=== PATIENT | female | born 1960 | race Caucasian/White ===

== ENCOUNTER 2017-04-27 09:02 | Emergency (ER) | payer OTHER ==
[~2017-04-27] VITALS: Ht 160 cm; Wt 63.6 kg
[~2017-04-27 09:02] MED LIST: AUGMENTIN875 MG PO; CLOBETASOL PROP60 GM TP; DILAUDID; DILAUDID2 MG PO; DIOVAN; DIOVAN HCT 81 TABLET PO; DIOVAN80 MG PO; DOLOPHINE HCL10 MG PO; FLEXERIL10 MG PO; FLUTICASONE PRO16 GM BOTH NARES; LIDOCAINE20 MG/1 M5 PO; MAGIC MOUTHWASH1 ML MM; METHADONE10 MG PO; MOTRIN600 MG PO; NAPROSYN500 MG PO; NAPROXEN500 MG PO; PERCOCET 7.51 TABLET PO; PRILOSEC20 MG PO; PRILOSEC40 MG PO; QUETIAPINE FUM100 MG PO; SYNTHROID175 MCG PO; ULTRAM50 MG PO; VALIUM10 MG PO; VICODIN; VICODIN ES 71 TABLET PO; VICODIN,LORT1 TABLET PO
[2017-04-27] MEDS ORDERED: MOTRIN800 MG PO (14:23)
[2017-04-27 14:34] VITALS: BP 120/88
== END 2017-04-27 14:37 | disposition home or self-care (01) ==
LOC: EME 09:02
DX: S00.83XA Contusion of other part of head, initial encounter (principal); S00.33XA Contusion of nose, initial encounter; S90.01XA Contusion of right ankle, initial encounter; S20.211A Contusion of right front wall of thorax, initial encounter; M54.5 Low back pain; Y04.2XXA Assault by strike against or bumped into by another person, initial encounter; I10 Essential (primary) hypertension; F17.200 Nicotine dependence, unspecified, uncomplicated
CPT/HCPCS: 70450; 71020; 72110; 72125; 73610; 99281; 99284

== ENCOUNTER 2017-12-30 16:10 | Inpatient (IN) | payer OTHER ==
[~2017-12-30] VITALS: Ht 162.6 cm; Wt 80.9 kg
[~2017-12-30 16:10] MED LIST changes: +DIOVAN160 MG PO; +MOTRIN800 MG PO
[2017-12-30 16:45] LABS: BASOPHIL (%) 0.4 % (0-1); BASOPHIL COUNT 0.2 K/uL (0-0.1); EOSINOPHIL (%) 1.2 % (0-5); EOSINOPHIL COUNT 0.5 K/uL (0-0.3); IMMATURE GRANULOCYTE (%) 2.4 % (0.0-0.7); LYMPHOCYTE (%) 6.2 % (15-42); LYMPHOCYTE COUNT 2.3 K/uL (1.0-2.8); MONOCYTE COUNT 1.5 K/uL (0-0.8); NEUTROPHIL (%) 85.8 % (45-76); NEUTROPHIL COUNT 31.7 K/uL (1.8-6.4); PLATELET COUNT 352 K/uL (156-360)
[2017-12-30 16:47] LABS: CARBON DIOXIDE (BICARBONATE) 15.2 MEQ/L (20-31)
[2017-12-30 16:49] LABS: BASE EXCESS -12.6 mEq/L (-3 to +3); BICARBONATE 12.7 mEq/L (22-26); CARBOXY HGB 2.2 % (0-5); COMMENTS - BLOOD GASES A+C+; METHEMOGLOBIN 1.2 % (0-1.5); O2 FLOW 8 L/MIN; PCO2 27 mm Hg (35-45); PO2 55 mm Hg (80-100); SITE RR; pH 7.28 (7.35-7.45)
[2017-12-30 16:50] LABS: DEVICE CON NEB/NC; TOTAL RESP RATE 26 resp/min
[2017-12-30 16:54] LABS: ALBUMIN 3.4 g/dL (3.2-4.8); CHLORIDE 110 mEq/L (99-109); POTASSIUM 2.6 mEq/L (3.7-5.4); SODIUM 142 mEq/L (136-147)
[2017-12-30 16:57] LABS: GLUCOSE 126 mg/dL (70-99); TOTAL PROTEIN 7.1 g/dL (6.4-8.3)
[2017-12-30 16:59] LABS: TOTAL BILIRUBIN 0.5 mg/dL (0.0-1.0)
[2017-12-30 17:00] LABS: ALKALINE PHOSPHATASE 124 IU/L (3-129); CREATININE 1.9 mg/dL (0.6-1.3); GFR ESTIMATE (CALCULATED) 29 mL/min/
[2017-12-30 17:01] LABS: UREA NITROGEN (BUN) 28 mg/dL (9-23)
[2017-12-30 17:02] LABS: AST (GOT) 31 IU/L (2-34)
[2017-12-30 17:03] LABS: ALT (GPT) 21 IU/L (3-49)
[2017-12-30 17:04] LABS: HEMATOCRIT 35.7 % (36.0-46.0); HEMOGLOBIN 12.6 G/DL (11.9-15.5); MCH 30.4 PG (29.0-34.0); MCHC 35.3 G/DL (30.0-36.0); NRBC (%) 0.1 /100 WBC (0-0); RBC DIS.WIDTH-CV 14.8 % (11.8-14.6); RBC DIS.WIDTH-SD 46.7 % (39-53); RED BLOOD COUNT 4.15 M/uL (3.80-5.20)
[2017-12-30 17:08] LABS: TROP-I INTERPRETATION NEGATIVE; TROPONIN-I < 0.01 ng/mL (0.0-0.30)
[2017-12-30 18:29] LABS: LIPASE 10 U/L (1.0-51.0)
[2017-12-30 18:33] LABS: INTER. NORMALIZED RATIO 1.3
[2017-12-30 18:36] LABS: PTT 24.8 SEC (25-37)
[2017-12-30 19:17] LABS: TROP-I INTERPRETATION NEGATIVE; TROPONIN-I < 0.01 ng/mL (0.0-0.30)
[2017-12-30] MEDS ORDERED: FLONASE16 G1 BOTH NARES (22:06)
[2017-12-30] MEDS ORDERED: ACID REFLUX PO (22:07)
[2017-12-30] MEDS ORDERED: BLOOD PRESSURE PO (22:07)
[2017-12-30] MEDS ORDERED: DEPRESSION PO (22:08)
[2017-12-30 23:06] LABS: APPEARANCE SL.HAZY ((CLEAR)); BILIRUBIN NEGATIVE; BLOOD MODERATE; COLOR YELLOW ((YELLOW)); GLUCOSE (STRIP) NEGATIVE; KETONES NEGATIVE; LEUKOCYTES TRACE; NITRITE NEGATIVE; PROTEIN (STRIP) 100; SPECIFIC GRAVITY 1.012 (1.000-1.030)
[2017-12-30 23:14] LABS: BACTERIA RARE /HPF; EPITHELIAL CELLS RARE /HPF; MUCUS NONE SEEN /LPF; RED BLOOD CELLS 0-5 /HPF (0-5); UCUL ADDED? YES
[2017-12-30 23:44] VITALS: BP 180/101
[2017-12-31] VITALS (40 sets, daily range): BP systolic 78–1119; BP diastolic 42–78
[2017-12-31 00:39] LABS: INTER. NORMALIZED RATIO 1.3
[2017-12-31 00:42] LABS: BASE EXCESS -16.5 mEq/L (-3 to +3); BICARBONATE 11.6 mEq/L (22-26); CARBOXY HGB 1.5 % (0-5); METHEMOGLOBIN 1.6 % (0-1.5); PO2 62 mm Hg (80-100)
[2017-12-31 00:43] LABS: COMMENTS - BLOOD GASES C+A+; DEVICE VENT; FI02 100 %; MECHANICAL RATE 18 resp/min; MODE AC; PCO2 35 mm Hg (35-45); PEEP 10 CM/H20; SITE LR; TIDAL VOLUME 450 ML; TOTAL RESP RATE 35 resp/min; pH 7.13 (7.35-7.45)
[2017-12-31 08:28] LABS: ALBUMIN 2.5 G/DL (3.2-4.8); ALKALINE PHOSPHATASE 91 IU/L (3-129); ALT (GPT) 23 IU/L (3-49); AST (GOT) 49 IU/L (2-34); CHLORIDE 113 MEQ/L (99-109); CREATININE 1.9 MG/DL (0.6-1.3); GFR ESTIMATE (CALCULATED) 29 mL/min/; GLUCOSE 110 mg/dL (70-99); POTASSIUM 2.7 MEQ/L (3.7-5.4); SODIUM 141 MEQ/L (136-147); TOTAL BILIRUBIN 0.5 MG/DL (0.0-1.0); TOTAL PROTEIN 5.8 G/DL (6.4-8.3); UREA NITROGEN (BUN) 29 mg/dL (9-23); VANCOMYCIN, TROUGH 24.3 MCG/ML (10-20)
[2017-12-31 11:39] LABS: BASE EXCESS -9.5 mEq/L (-3 to +3); CARBOXY HGB 1.1 % (0-5); METHEMOGLOBIN 1.9 % (0-1.5); PCO2 39 mm Hg (35-45)
[2017-12-31 11:40] LABS: BICARBONATE 17.1 mEq/L (22-26); COMMENTS - BLOOD GASES A+C+; DEVICE PB 980; FI02 70 %; O2 FLOW 60 L/MIN; PO2 79 mm Hg (80-100); SITE RR; pH 7.25 (7.35-7.45)
[2017-12-31 11:41] LABS: INSPIRATION TIME 0.8 seconds; MECHANICAL RATE 25 resp/min; MODE AC VC+; PEEP 14 CM/H20; TIDAL VOLUME 450 ML; TOTAL RESP RATE 25 resp/min
[2017-12-31 12:35] LABS: MAGNESIUM 1.6 mg/dl (1.3-2.7); PHOSPHORUS 4.5 mg/dL (2.5-4.9); TRIGLYCERIDES 155 MG/DL (Normal: <150)
[2017-12-31 12:36] LABS: HIGH-SENS C-REACTIVE PROTEIN > 8.00 MG/DL (0.02-0.20)
[2017-12-31 22:37] LABS: BASE EXCESS -4.9 mEq/L (-3 to +3); BICARBONATE 20.6 mEq/L (22-26); CARBOXY HGB 1.2 % (0-5); COMMENTS - BLOOD GASES A+C+; METHEMOGLOBIN 1.4 % (0-1.5); PCO2 39 mm Hg (35-45); PO2 92 mm Hg (80-100); SITE RR; pH 7.33 (7.35-7.45)
[2017-12-31 22:38] LABS: DEVICE VENT; FI02 50 %; INSPIRATION TIME 0.8 seconds; MECHANICAL RATE 25 resp/min; MODE A/C; PEEP 16 CM/H20; TIDAL VOLUME 450 ML; TOTAL RESP RATE 25 resp/min
[2018-01-01] VITALS (25 sets, daily range): BP systolic 85–113; BP diastolic 55–80
[2018-01-01 05:26] LABS: BASOPHIL (%) 0.2 % (0-1); BASOPHIL COUNT 0.1 K/uL (0-0.1); EOSINOPHIL (%) 0 % (0-5); HEMATOCRIT 27.3 % (36.0-46.0); IMMATURE GRANULOCYTE (%) 1.6 % (0.0-0.7); LYMPHOCYTE (%) 1.7 % (15-42); LYMPHOCYTE COUNT 0.5 K/uL (1.0-2.8); MCH 29.4 PG (29.0-34.0); MCHC 34.1 G/DL (30.0-36.0); MCV 86.4 FL (83-99); MONOCYTE (%) 4.3 % (3-12); MONOCYTE COUNT 1.2 K/uL (0-0.8); NEUTROPHIL (%) 92.2 % (45-76); NEUTROPHIL COUNT 24.9 K/uL (1.8-6.4); NRBC (%) 0.2 /100 WBC (0-0); PLATELET COUNT 249 K/uL (156-360); RBC DIS.WIDTH-CV 15.4 % (11.8-14.6)
[2018-01-01 05:30] LABS: HEMOGLOBIN 9.3 G/DL (11.9-15.5); RED BLOOD COUNT 3.16 M/uL (3.80-5.20)
[2018-01-01 05:38] LABS: CHLORIDE 115 MEQ/L (99-109); GFR ESTIMATE (CALCULATED) 27 mL/min/; GLUCOSE 87 mg/dL (70-99); POTASSIUM 3.4 MEQ/L (3.7-5.4); SODIUM 146 MEQ/L (136-147); UREA NITROGEN (BUN) 33 mg/dL (9-23)
[2018-01-01 05:43] LABS: ALBUMIN 2.4 G/DL (3.2-4.8); ALKALINE PHOSPHATASE 96 IU/L (3-129); ALT (GPT) 40 IU/L (3-49); CREATINE KINASE 577 IU/L (1-294); PHOSPHORUS 4.7 mg/dL (2.5-4.9)
[2018-01-01 05:45] LABS: AST (GOT) 89 IU/L (2-34); HIGH-SENS C-REACTIVE PROTEIN 17.53 MG/DL (0.02-0.20); MAGNESIUM 1.9 mg/dl (1.3-2.7); TOTAL BILIRUBIN 0.7 MG/DL (0.0-1.0); TOTAL PROTEIN 4.8 G/DL (6.4-8.3)
[2018-01-01 08:41] LABS: BASE EXCESS -6.3 mEq/L (-3 to +3); DEVICE 980; FI02 40 %; MECHANICAL RATE 25 resp/min; METHEMOGLOBIN 1.3 % (0-1.5); MODE A/C; PCO2 36 mm Hg (35-45); PEEP 14 CM/H20; PO2 75 mm Hg (80-100); SITE LR; TIDAL VOLUME 450 ML; TOTAL RESP RATE 25 resp/min; pH 7.33 (7.35-7.45)
[2018-01-02] VITALS (17 sets, daily range): BP systolic 107–139; BP diastolic 67–91
[2018-01-02 05:25] LABS: BASOPHIL (%) 0.2 % (0-1); EOSINOPHIL (%) 1.1 % (0-5); EOSINOPHIL COUNT 0.2 K/uL (0-0.3); HEMATOCRIT 29.7 % (36.0-46.0); HEMOGLOBIN 9.8 G/DL (11.9-15.5); IMMATURE GRANULOCYTE (%) 3.7 % (0.0-0.7); LYMPHOCYTE (%) 4.3 % (15-42); LYMPHOCYTE COUNT 0.7 K/uL (1.0-2.8); MCH 29.3 PG (29.0-34.0); MCV 88.7 FL (83-99); MONOCYTE (%) 4.7 % (3-12); MONOCYTE COUNT 0.8 K/uL (0-0.8); NEUTROPHIL COUNT 14.7 K/uL (1.8-6.4); NRBC (%) 0.2 /100 WBC (0-0); PLATELET COUNT 238 K/uL (156-360); RBC DIS.WIDTH-SD 52.3 % (39-53); RED BLOOD COUNT 3.35 M/uL (3.80-5.20)
[2018-01-02 05:45] LABS: ALBUMIN 2.4 G/DL (3.2-4.8); ALKALINE PHOSPHATASE 119 IU/L (3-129); ALT (GPT) 68 IU/L (3-49); CHLORIDE 116 MEQ/L (99-109); CREATINE KINASE 611 IU/L (1-294); CREATININE 1.9 MG/DL (0.6-1.3); GFR ESTIMATE (CALCULATED) 29 mL/min/; GLUCOSE 97 mg/dL (70-99); PHOSPHORUS 3.8 mg/dL (2.5-4.9); POTASSIUM 3.3 MEQ/L (3.7-5.4); SODIUM 145 MEQ/L (136-147); TOTAL PROTEIN 4.9 G/DL (6.4-8.3); UREA NITROGEN (BUN) 40 mg/dL (9-23)
[2018-01-02 05:46] LABS: AST (GOT) 139 IU/L (2-34); MAGNESIUM 2.3 mg/dl (1.3-2.7); TOTAL BILIRUBIN 1.2 MG/DL (0.0-1.0)
[2018-01-02 08:20] LABS: BASE EXCESS -6.3 mEq/L (-3 to +3); BICARBONATE 19.7 mEq/L (22-26); CARBOXY HGB 1.6 % (0-5); METHEMOGLOBIN 1.2 % (0-1.5); PCO2 40 mm Hg (35-45); PO2 65 mm Hg (80-100)
[2018-01-02 08:21] LABS: COMMENTS - BLOOD GASES A+C+; DEVICE 980; FI02 40 %; MECHANICAL RATE 25 resp/min; MODE A/C; PEEP 10 CM/H20; SITE RR; TIDAL VOLUME 450 ML; TOTAL RESP RATE 25 resp/min
[2018-01-03] VITALS (16 sets, daily range): BP systolic 118–160; BP diastolic 71–108
[2018-01-03 05:50] LABS: BASOPHIL (%) 0.3 % (0-1); BASOPHIL COUNT 0.1 K/uL (0-0.1); EOSINOPHIL (%) 2.2 % (0-5); EOSINOPHIL COUNT 0.4 K/uL (0-0.3); HEMATOCRIT 29.5 % (36.0-46.0); HEMOGLOBIN 9.8 G/DL (11.9-15.5); IMMATURE GRANULOCYTE (%) 4.7 % (0.0-0.7); LYMPHOCYTE COUNT 0.9 K/uL (1.0-2.8); MCH 29.7 PG (29.0-34.0); MCHC 33.2 G/DL (30.0-36.0); MCV 89.4 FL (83-99); MONOCYTE (%) 5.2 % (3-12); NEUTROPHIL (%) 82.6 % (45-76); NRBC (%) 0.2 /100 WBC (0-0); PLATELET COUNT 253 K/uL (156-360); RBC DIS.WIDTH-CV 16.2 % (11.8-14.6); WHITE BLOOD COUNT 18.1 K/uL (4.1-10.2)
[2018-01-03 06:19] LABS: ALBUMIN 2.3 G/DL (3.2-4.8); ALKALINE PHOSPHATASE 114 IU/L (3-129); ALT (GPT) 57 IU/L (3-49); CHLORIDE 119 MEQ/L (99-109); CREATINE KINASE 145 IU/L (1-294); CREATININE 1.6 MG/DL (0.6-1.3); GFR ESTIMATE (CALCULATED) 35 mL/min/; GLUCOSE 98 mg/dL (70-99); MAGNESIUM 2.1 mg/dl (1.3-2.7); PHOSPHORUS 3.3 mg/dL (2.5-4.9); POTASSIUM 3.2 MEQ/L (3.7-5.4); SODIUM 151 MEQ/L (136-147); TOTAL BILIRUBIN 1.2 MG/DL (0.0-1.0); TOTAL PROTEIN 5.1 G/DL (6.4-8.3); UREA NITROGEN (BUN) 39 mg/dL (9-23)
[2018-01-03 06:20] LABS: AST (GOT) 71 IU/L (2-34)
[2018-01-03 16:02] LABS: TYPE OF FLUID PLEURAL
[2018-01-03 16:41] LABS: APPEARANCE HAZY-YELLOW; BODY FLUID RBC'S 4000 /MM^3 (0-100); BODY FLUID WBC'S 46340 /MM^3 (0-500)
[2018-01-03 17:07] LABS: BODY FLUID GLUCOSE > 10 MG/DL
[2018-01-03 17:08] LABS: BODY FLUID PROTEIN 4.4 G/DL
[2018-01-03 17:12] LABS: BODY FLUID EOSINOPHILS 0 % (0-25); MONONUCLEAR WBC'S 4 %; POLYNUCLEAR WBC'S 96 % (0-25)
[2018-01-03 17:14] LABS: BODY FLUID LDH 3900 IU/L
[2018-01-04] VITALS (18 sets, daily range): BP systolic 118–154; BP diastolic 75–104
[2018-01-04 05:13] LABS: BASOPHIL (%) 0.2 % (0-1); EOSINOPHIL (%) 3.2 % (0-5); EOSINOPHIL COUNT 0.5 K/uL (0-0.3); HEMATOCRIT 29.1 % (36.0-46.0); HEMOGLOBIN 9.3 G/DL (11.9-15.5); IMMATURE GRANULOCYTE (%) 4.8 % (0.0-0.7); LYMPHOCYTE (%) 6.2 % (15-42); MCH 29.2 PG (29.0-34.0); MCV 91.5 FL (83-99); MONOCYTE (%) 4.3 % (3-12); MONOCYTE COUNT 0.7 K/uL (0-0.8); NEUTROPHIL (%) 81.3 % (45-76); NEUTROPHIL COUNT 13.4 K/uL (1.8-6.4); NRBC (%) 0.1 /100 WBC (0-0); PLATELET COUNT 241 K/uL (156-360); RBC DIS.WIDTH-CV 16.3 % (11.8-14.6); RBC DIS.WIDTH-SD 55.3 % (39-53); RED BLOOD COUNT 3.18 M/uL (3.80-5.20); WHITE BLOOD COUNT 16.4 K/uL (4.1-10.2)
[2018-01-04 06:23] LABS: ALBUMIN 2.2 G/DL (3.2-4.8); ALKALINE PHOSPHATASE 99 IU/L (3-129); ALT (GPT) 43 IU/L (3-49); AST (GOT) 47 IU/L (2-34); CHLORIDE 121 MEQ/L (99-109); CREATININE 1.3 MG/DL (0.6-1.3); GFR ESTIMATE (CALCULATED) 45 mL/min/; GLUCOSE 119 mg/dL (70-99); PHOSPHORUS 3.4 mg/dL (2.5-4.9); SODIUM 152 MEQ/L (136-147); UREA NITROGEN (BUN) 38 mg/dL (9-23)
[2018-01-04 06:24] LABS: POTASSIUM 3.9 MEQ/L (3.7-5.4); TOTAL BILIRUBIN 0.9 MG/DL (0.0-1.0)
[2018-01-04 11:42] LABS: BASE EXCESS -3.2 mEq/L (-3 to +3); CARBOXY HGB 1.5 % (0-5); COMMENTS - BLOOD GASES A+C+; DEVICE 980; FI02 50 %; MECHANICAL RATE 25 resp/min; METHEMOGLOBIN 1.7 % (0-1.5); MODE A/C; PCO2 39 mm Hg (35-45); PEEP 10 CM/H20; PO2 86 mm Hg (80-100); SITE RR; TIDAL VOLUME 450 ML; TOTAL RESP RATE 25 resp/min; pH 7.36 (7.35-7.45)
[2018-01-05] VITALS (19 sets, daily range): BP systolic 120–155; BP diastolic 66–104
[2018-01-05 05:37] LABS: BASOPHIL (%) 0.4 % (0-1); BASOPHIL COUNT 0.1 K/uL (0-0.1); EOSINOPHIL (%) 4.9 % (0-5); EOSINOPHIL COUNT 0.8 K/uL (0-0.3); HEMATOCRIT 29.7 % (36.0-46.0); HEMOGLOBIN 9.6 G/DL (11.9-15.5); IMMATURE GRANULOCYTE (%) 3.9 % (0.0-0.7); LYMPHOCYTE (%) 6.3 % (15-42); LYMPHOCYTE COUNT 1.1 K/uL (1.0-2.8); MCH 29.6 PG (29.0-34.0); MCHC 32.3 G/DL (30.0-36.0); MCV 91.7 FL (83-99); MONOCYTE (%) 5.6 % (3-12); MONOCYTE COUNT 0.9 K/uL (0-0.8); NEUTROPHIL (%) 78.9 % (45-76); NEUTROPHIL COUNT 13.4 K/uL (1.8-6.4); PLATELET COUNT 288 K/uL (156-360); RBC DIS.WIDTH-CV 16.4 % (11.8-14.6); RBC DIS.WIDTH-SD 54.9 % (39-53); RED BLOOD COUNT 3.24 M/uL (3.80-5.20); WHITE BLOOD COUNT 16.9 K/uL (4.1-10.2)
[2018-01-05 06:25] LABS: ALBUMIN 2.4 G/DL (3.2-4.8); ALKALINE PHOSPHATASE 110 IU/L (3-129); ALT (GPT) 38 IU/L (3-49); AST (GOT) 41 IU/L (2-34); CHLORIDE 113 MEQ/L (99-109); CREATINE KINASE 55 IU/L (1-294); CREATININE 1.2 MG/DL (0.6-1.3); GFR ESTIMATE (CALCULATED) 49 mL/min/; GLUCOSE 106 mg/dL (70-99); MAGNESIUM 1.8 mg/dl (1.3-2.7); PHOSPHORUS 2.9 mg/dL (2.5-4.9); POTASSIUM 3.7 MEQ/L (3.7-5.4); SODIUM 147 MEQ/L (136-147); TOTAL PROTEIN 5.2 G/DL (6.4-8.3); UREA NITROGEN (BUN) 33 mg/dL (9-23)
[2018-01-05 06:28] LABS: TOTAL BILIRUBIN 0.7 MG/DL (0.0-1.0)
[2018-01-06] VITALS (23 sets, daily range): BP systolic 115–152; BP diastolic 68–95
[2018-01-06 05:27] LABS: BASOPHIL (%) 0.3 % (0-1); EOSINOPHIL (%) 4.6 % (0-5); EOSINOPHIL COUNT 0.6 K/uL (0-0.3); HEMATOCRIT 28.9 % (36.0-46.0); HEMOGLOBIN 9.3 G/DL (11.9-15.5); IMMATURE GRANULOCYTE (%) 2.3 % (0.0-0.7); LYMPHOCYTE (%) 8.2 % (15-42); LYMPHOCYTE COUNT 1.2 K/uL (1.0-2.8); MCH 29.6 PG (29.0-34.0); MCHC 32.2 G/DL (30.0-36.0); MONOCYTE (%) 6.5 % (3-12); MONOCYTE COUNT 0.9 K/uL (0-0.8); NEUTROPHIL (%) 78.1 % (45-76); NEUTROPHIL COUNT 10.9 K/uL (1.8-6.4); PLATELET COUNT 294 K/uL (156-360); RBC DIS.WIDTH-CV 15.9 % (11.8-14.6); RBC DIS.WIDTH-SD 53.1 % (39-53); RED BLOOD COUNT 3.14 M/uL (3.80-5.20)
[2018-01-06 05:57] LABS: ALBUMIN 2.3 G/DL (3.2-4.8); ALKALINE PHOSPHATASE 112 IU/L (3-129); ALT (GPT) 32 IU/L (3-49); AST (GOT) 40 IU/L (2-34); CHLORIDE 111 MEQ/L (99-109); CREATININE 1.1 MG/DL (0.6-1.3); GFR ESTIMATE (CALCULATED) 54 mL/min/; GLUCOSE 105 mg/dL (70-99); MAGNESIUM 1.9 mg/dl (1.3-2.7); PHOSPHORUS 3.4 mg/dL (2.5-4.9); POTASSIUM 3.8 MEQ/L (3.7-5.4); SODIUM 144 MEQ/L (136-147); TOTAL BILIRUBIN 0.7 MG/DL (0.0-1.0); TOTAL PROTEIN 5.2 G/DL (6.4-8.3); UREA NITROGEN (BUN) 29 mg/dL (9-23)
[2018-01-07] VITALS (24 sets, daily range): BP systolic 94–135; BP diastolic 53–87
[2018-01-07 05:32] LABS: BASOPHIL (%) 0.5 % (0-1); BASOPHIL COUNT 0.1 K/uL (0-0.1); EOSINOPHIL (%) 3.7 % (0-5); EOSINOPHIL COUNT 0.4 K/uL (0-0.3); HEMATOCRIT 29.2 % (36.0-46.0); HEMOGLOBIN 9.4 G/DL (11.9-15.5); IMMATURE GRANULOCYTE (%) 2.4 % (0.0-0.7); LYMPHOCYTE COUNT 1.1 K/uL (1.0-2.8); MCH 29.6 PG (29.0-34.0); MCHC 32.2 G/DL (30.0-36.0); MCV 91.8 FL (83-99); MONOCYTE (%) 7.6 % (3-12); MONOCYTE COUNT 0.9 K/uL (0-0.8); NEUTROPHIL (%) 76.8 % (45-76); NEUTROPHIL COUNT 9.3 K/uL (1.8-6.4); PLATELET COUNT 317 K/uL (156-360); RBC DIS.WIDTH-CV 15.3 % (11.8-14.6); RBC DIS.WIDTH-SD 51.6 % (39-53); RED BLOOD COUNT 3.18 M/uL (3.80-5.20); WHITE BLOOD COUNT 12.1 K/uL (4.1-10.2)
[2018-01-07 05:55] LABS: ALBUMIN 2.6 G/DL (3.2-4.8); ALKALINE PHOSPHATASE 111 IU/L (3-129); ALT (GPT) 24 IU/L (3-49); AST (GOT) 30 IU/L (2-34); CHLORIDE 107 MEQ/L (99-109); GFR ESTIMATE (CALCULATED) > 59 mL/min/; GLUCOSE 100 mg/dL (70-99); MAGNESIUM 1.9 mg/dl (1.3-2.7); PHOSPHORUS 3.8 mg/dL (2.5-4.9); POTASSIUM 3.7 MEQ/L (3.7-5.4); SODIUM 139 MEQ/L (136-147); TOTAL BILIRUBIN 0.6 MG/DL (0.0-1.0); TOTAL PROTEIN 5.6 G/DL (6.4-8.3); UREA NITROGEN (BUN) 24 mg/dL (9-23)
[2018-01-07 14:17] LABS: INTER. NORMALIZED RATIO 1.1
[2018-01-07 14:20] LABS: PTT 32.8 SEC (25-37)
[2018-01-07 17:06] LABS: C DIFF TOXIN NEGATIVE (NEGATIVE)
[2018-01-08] VITALS (15 sets, daily range): BP systolic 97–127; BP diastolic 57–80
[2018-01-08 05:30] LABS: HEMATOCRIT 27.7 % (36.0-46.0); MCH 29.5 PG (29.0-34.0); MCHC 32.5 G/DL (30.0-36.0); MCV 90.8 FL (83-99); RBC DIS.WIDTH-CV 15.3 % (11.8-14.6); RBC DIS.WIDTH-SD 50.4 % (39-53); RED BLOOD COUNT 3.05 M/uL (3.80-5.20); WHITE BLOOD COUNT 12.7 K/uL (4.1-10.2)
[2018-01-08 05:38] LABS: CHLORIDE 104 MEQ/L (99-109); CREATININE 1.1 MG/DL (0.6-1.3); GFR ESTIMATE (CALCULATED) 54 mL/min/; GLUCOSE 88 mg/dL (70-99); POTASSIUM 3.8 MEQ/L (3.7-5.4); SODIUM 138 MEQ/L (136-147); UREA NITROGEN (BUN) 23 mg/dL (9-23)
[2018-01-08 05:49] LABS: PLATELET COUNT 427 K/uL (156-360)
[2018-01-09] VITALS (23 sets, daily range): BP systolic 75–126; BP diastolic 58–89
[2018-01-09 05:33] LABS: HEMATOCRIT 30.5 % (36.0-46.0); HEMOGLOBIN 9.6 G/DL (11.9-15.5); MCHC 31.5 G/DL (30.0-36.0); MCV 92.1 FL (83-99); PLATELET COUNT 461 K/uL (156-360); RBC DIS.WIDTH-CV 15.1 % (11.8-14.6); RBC DIS.WIDTH-SD 51.1 % (39-53); RED BLOOD COUNT 3.31 M/uL (3.80-5.20); WHITE BLOOD COUNT 13.3 K/uL (4.1-10.2)
[2018-01-09 05:58] LABS: CHLORIDE 104 MEQ/L (99-109); CREATININE 1.3 MG/DL (0.6-1.3); GFR ESTIMATE (CALCULATED) 45 mL/min/; GLUCOSE 79 mg/dL (70-99); POTASSIUM 3.8 MEQ/L (3.7-5.4); SODIUM 138 MEQ/L (136-147); UREA NITROGEN (BUN) 19 mg/dL (9-23)
[2018-01-10] VITALS (22 sets, daily range): BP systolic 83–105; BP diastolic 55–93
[2018-01-10 05:11] LABS: HEMATOCRIT 28.6 % (36.0-46.0); HEMOGLOBIN 9.3 G/DL (11.9-15.5); MCH 29.2 PG (29.0-34.0); MCHC 32.5 G/DL (30.0-36.0); MCV 89.7 FL (83-99); PLATELET COUNT 536 K/uL (156-360); RBC DIS.WIDTH-CV 14.8 % (11.8-14.6); RBC DIS.WIDTH-SD 48.4 % (39-53); RED BLOOD COUNT 3.19 M/uL (3.80-5.20); WHITE BLOOD COUNT 11.6 K/uL (4.1-10.2)
[2018-01-10 05:34] LABS: CHLORIDE 104 MEQ/L (99-109); CREATININE 1.1 MG/DL (0.6-1.3); GFR ESTIMATE (CALCULATED) 54 mL/min/; GLUCOSE 87 mg/dL (70-99); POTASSIUM 3.6 MEQ/L (3.7-5.4); SODIUM 138 MEQ/L (136-147); UREA NITROGEN (BUN) 17 mg/dL (9-23)
[2018-01-10 14:14] LABS: HIGH-SENS C-REACTIVE PROTEIN > 8.00 MG/DL (0.02-0.20)
[2018-01-11] VITALS (22 sets, daily range): BP systolic 89–164; BP diastolic 52–100
[2018-01-11 05:35] LABS: HEMATOCRIT 25.9 % (36.0-46.0); HEMOGLOBIN 8.3 G/DL (11.9-15.5); MCH 29.2 PG (29.0-34.0); MCV 91.2 FL (83-99); PLATELET COUNT 577 K/uL (156-360); RBC DIS.WIDTH-CV 14.8 % (11.8-14.6); RBC DIS.WIDTH-SD 49.6 % (39-53); RED BLOOD COUNT 2.84 M/uL (3.80-5.20); WHITE BLOOD COUNT 10.1 K/uL (4.1-10.2)
[2018-01-11 05:55] LABS: CHLORIDE 106 MEQ/L (99-109); CREATININE 1.2 MG/DL (0.6-1.3); GFR ESTIMATE (CALCULATED) 49 mL/min/; GLUCOSE 82 mg/dL (70-99); PHOSPHORUS 4.6 mg/dL (2.5-4.9); POTASSIUM 3.5 MEQ/L (3.7-5.4); SODIUM 138 MEQ/L (136-147); UREA NITROGEN (BUN) 17 mg/dL (9-23)
[2018-01-11 05:56] LABS: HIGH-SENS C-REACTIVE PROTEIN > 8.00 MG/DL (0.02-0.20); MAGNESIUM 2.2 mg/dl (1.3-2.7)
[2018-01-11 21:27] LABS: HEMATOCRIT 25.8 % (36.0-46.0); HEMOGLOBIN 8.2 G/DL (11.9-15.5); MCHC 31.8 G/DL (30.0-36.0); MCV 91.2 FL (83-99); PLATELET COUNT 628 K/uL (156-360); RBC DIS.WIDTH-CV 14.7 % (11.8-14.6); RBC DIS.WIDTH-SD 49.1 % (39-53); RED BLOOD COUNT 2.83 M/uL (3.80-5.20); WHITE BLOOD COUNT 17.7 K/uL (4.1-10.2)
[2018-01-12] VITALS (21 sets, daily range): BP systolic 96–133; BP diastolic 53–82
[2018-01-12 05:36] LABS: HEMATOCRIT 21.6 % (36.0-46.0); HEMOGLOBIN 6.9 G/DL (11.9-15.5); MCHC 31.9 G/DL (30.0-36.0); MCV 90.8 FL (83-99); PLATELET COUNT 663 K/uL (156-360); RBC DIS.WIDTH-CV 14.6 % (11.8-14.6); RBC DIS.WIDTH-SD 48.8 % (39-53); RED BLOOD COUNT 2.38 M/uL (3.80-5.20); WHITE BLOOD COUNT 12.4 K/uL (4.1-10.2)
[2018-01-12 05:42] LABS: CHLORIDE 106 MEQ/L (99-109); CREATININE 1.1 MG/DL (0.6-1.3); GFR ESTIMATE (CALCULATED) 54 mL/min/; GLUCOSE 98 mg/dL (70-99); PHOSPHORUS 4.6 mg/dL (2.5-4.9); POTASSIUM 3.8 MEQ/L (3.7-5.4); SODIUM 137 MEQ/L (136-147); UREA NITROGEN (BUN) 15 mg/dL (9-23)
[2018-01-12 05:55] LABS: TRIGLYCERIDES 301 MG/DL (Normal: <150)
[2018-01-12 06:04] LABS: HEMATOCRIT 23.5 % (36.0-46.0); HEMOGLOBIN 7.8 G/DL (11.9-15.5); MCH 29.7 PG (29.0-34.0); MCHC 33.2 G/DL (30.0-36.0); MCV 89.4 FL (83-99); NRBC (%) 0.2 /100 WBC (0-0); PLATELET COUNT 610 K/uL (156-360); RBC DIS.WIDTH-CV 14.6 % (11.8-14.6); RBC DIS.WIDTH-SD 47.4 % (39-53); RED BLOOD COUNT 2.63 M/uL (3.80-5.20); WHITE BLOOD COUNT 13.2 K/uL (4.1-10.2)
[2018-01-13] VITALS (18 sets, daily range): BP systolic 104–157; BP diastolic 59–100
[2018-01-13 06:10] LABS: MAGNESIUM 1.9 mg/dl (1.3-2.7)
[2018-01-13 06:11] LABS: PHOSPHORUS 2.4 mg/dL (2.5-4.9)
[2018-01-13 09:42] LABS: COMMENTS - BLOOD GASES A+C+; DEVICE 980; FI02 30 %; MODE SPON; PCO2 35 mm Hg (35-45); PEEP 5 CM/H20; PRES. SUPPORT 10 CM/H2O; SITE RR; TOTAL RESP RATE 32 resp/min; pH 7.39 (7.35-7.45)
[2018-01-13 09:43] LABS: BASE EXCESS -3.4 mEq/L (-3 to +3); BICARBONATE 21.2 mEq/L (22-26); CARBOXY HGB 1.5 % (0-5); O2 SATURATION (CALCULATED) 94.4 % (95-99); PO2 63 mm Hg (80-100)
[2018-01-13 10:40] LABS: HIGH-SENS C-REACTIVE PROTEIN > 8.00 MG/DL (0.02-0.20); LIPASE 73 U/L (1.0-51.0); TRIGLYCERIDES 269 MG/DL (Normal: <150)
[2018-01-13 17:37] LABS: CHLORIDE 109 MEQ/L (99-109); POTASSIUM 3.1 MEQ/L (3.7-5.4); SODIUM 140 MEQ/L (136-147)
[2018-01-13 17:42] LABS: CREATININE 0.8 MG/DL (0.6-1.3); GFR ESTIMATE (CALCULATED) > 59 mL/min/; GLUCOSE 115 mg/dL (70-99); UREA NITROGEN (BUN) 9 mg/dL (9-23)
[2018-01-14] VITALS (20 sets, daily range): BP systolic 104–171; BP diastolic 71–98
[2018-01-14 06:25] LABS: ALBUMIN 2.5 G/DL (3.2-4.8); ALKALINE PHOSPHATASE 62 IU/L (3-129); ALT (GPT) 24 IU/L (3-49); AST (GOT) 30 IU/L (2-34); HIGH-SENS C-REACTIVE PROTEIN > 8.00 MG/DL (0.02-0.20); MAGNESIUM 1.8 mg/dl (1.3-2.7); PHOSPHORUS 3.1 mg/dL (2.5-4.9); TOTAL BILIRUBIN 0.5 MG/DL (0.0-1.0); TOTAL PROTEIN 5.7 G/DL (6.4-8.3)
[2018-01-14 07:34] LABS: BASOPHIL (%) 0.5 % (0-1); EOSINOPHIL (%) 0.7 % (0-5); EOSINOPHIL COUNT 0.1 K/uL (0-0.3); HEMATOCRIT 20.5 % (36.0-46.0); HEMOGLOBIN 6.7 G/DL (11.9-15.5); IMMATURE GRANULOCYTE (%) 1.1 % (0.0-0.7); LYMPHOCYTE (%) 13.7 % (15-42); MCH 28.9 PG (29.0-34.0); MCHC 32.7 G/DL (30.0-36.0); MCV 88.4 FL (83-99); MONOCYTE (%) 8.3 % (3-12); MONOCYTE COUNT 0.6 K/uL (0-0.8); NEUTROPHIL (%) 75.7 % (45-76); NEUTROPHIL COUNT 5.7 K/uL (1.8-6.4); RBC DIS.WIDTH-CV 14.5 % (11.8-14.6); RBC DIS.WIDTH-SD 45.6 % (39-53); RED BLOOD COUNT 2.32 M/uL (3.80-5.20); WHITE BLOOD COUNT 7.5 K/uL (4.1-10.2)
[2018-01-14 07:54] LABS: PLAT.SUFFICIENCY INCREASED; PLATELET COUNT 467 K/uL (156-360)
[2018-01-14 08:19] LABS: CHLORIDE 111 MEQ/L (99-109); CREATININE 0.8 MG/DL (0.6-1.3); GFR ESTIMATE (CALCULATED) > 59 mL/min/; GLUCOSE 106 mg/dL (70-99); SODIUM 143 MEQ/L (136-147); UREA NITROGEN (BUN) 10 mg/dL (9-23)
[2018-01-15] VITALS (23 sets, daily range): BP systolic 126–176; BP diastolic 78–117
[2018-01-15 05:21] LABS: BASOPHIL (%) 0.9 % (0-1); BASOPHIL COUNT 0.1 K/uL (0-0.1); EOSINOPHIL (%) 2.8 % (0-5); EOSINOPHIL COUNT 0.3 K/uL (0-0.3); HEMATOCRIT 26.7 % (36.0-46.0); IMMATURE GRANULOCYTE (%) 1.6 % (0.0-0.7); LYMPHOCYTE (%) 11.4 % (15-42); LYMPHOCYTE COUNT 1.1 K/uL (1.0-2.8); MCH 28.9 PG (29.0-34.0); MCHC 33.3 G/DL (30.0-36.0); MCV 86.7 FL (83-99); MONOCYTE (%) 9.9 % (3-12); NEUTROPHIL (%) 73.4 % (45-76); NEUTROPHIL COUNT 7.2 K/uL (1.8-6.4); PLATELET COUNT 477 K/uL (156-360); RBC DIS.WIDTH-CV 14.7 % (11.8-14.6); RBC DIS.WIDTH-SD 46.4 % (39-53); WHITE BLOOD COUNT 9.8 K/uL (4.1-10.2)
[2018-01-15 05:24] LABS: HEMOGLOBIN 8.9 G/DL (11.9-15.5); RED BLOOD COUNT 3.08 M/uL (3.80-5.20)
[2018-01-15 05:44] LABS: ALBUMIN 2.5 G/DL (3.2-4.8); ALKALINE PHOSPHATASE 71 IU/L (3-129); ALT (GPT) 32 IU/L (3-49); CHLORIDE 109 MEQ/L (99-109); CREATININE 0.9 MG/DL (0.6-1.3); GFR ESTIMATE (CALCULATED) > 59 mL/min/; GLUCOSE 121 mg/dL (70-99); MAGNESIUM 1.8 mg/dl (1.3-2.7); POTASSIUM 3.5 MEQ/L (3.7-5.4); SODIUM 140 MEQ/L (136-147); TOTAL PROTEIN 5.7 G/DL (6.4-8.3); UREA NITROGEN (BUN) 12 mg/dL (9-23)
[2018-01-15 05:50] LABS: AST (GOT) 45 IU/L (2-34); TOTAL BILIRUBIN 0.7 MG/DL (0.0-1.0)
[2018-01-15 19:48] LABS: HIGH-SENS C-REACTIVE PROTEIN > 8.00 MG/DL (0.02-0.20)
[2018-01-16] VITALS (23 sets, daily range): BP systolic 132–194; BP diastolic 79–139
[2018-01-16 06:01] LABS: BASOPHIL (%) 0.6 % (0-1); EOSINOPHIL COUNT 0.3 K/uL (0-0.3); HEMATOCRIT 27.8 % (36.0-46.0); HEMOGLOBIN 9.1 G/DL (11.9-15.5); IMMATURE GRANULOCYTE (%) 1.4 % (0.0-0.7); LYMPHOCYTE (%) 16.9 % (15-42); LYMPHOCYTE COUNT 1.1 K/uL (1.0-2.8); MCH 28.8 PG (29.0-34.0); MCHC 32.7 G/DL (30.0-36.0); MONOCYTE (%) 11.1 % (3-12); MONOCYTE COUNT 0.7 K/uL (0-0.8); NEUTROPHIL COUNT 4.4 K/uL (1.8-6.4); RBC DIS.WIDTH-CV 14.6 % (11.8-14.6); RBC DIS.WIDTH-SD 46.2 % (39-53); RED BLOOD COUNT 3.16 M/uL (3.80-5.20); WHITE BLOOD COUNT 6.6 K/uL (4.1-10.2)
[2018-01-16 06:24] LABS: ALBUMIN 2.4 G/DL (3.2-4.8); ALKALINE PHOSPHATASE 75 IU/L (3-129); CHLORIDE 108 MEQ/L (99-109); CREATININE 0.8 MG/DL (0.6-1.3); GFR ESTIMATE (CALCULATED) > 59 mL/min/; GLUCOSE 108 mg/dL (70-99); MAGNESIUM 1.8 mg/dl (1.3-2.7); PHOSPHORUS 3.3 mg/dL (2.5-4.9); SODIUM 139 MEQ/L (136-147); TOTAL BILIRUBIN 0.6 MG/DL (0.0-1.0); TOTAL PROTEIN 5.5 G/DL (6.4-8.3); UREA NITROGEN (BUN) 10 mg/dL (9-23)
[2018-01-16 06:25] LABS: ALT (GPT) 63 IU/L (3-49); AST (GOT) 84 IU/L (2-34)
[2018-01-16 06:53] LABS: PLATELET COUNT 450 K/uL (156-360)
[2018-01-16 21:47] LABS: C DIFF TOXIN NEGATIVE (NEGATIVE)
[2018-01-16 23:25] LABS: CHLORIDE 102 mEq/L (99-109); POTASSIUM 3.1 mEq/L (3.7-5.4); SODIUM 138 mEq/L (136-147)
[2018-01-16 23:26] LABS: GLUCOSE 103 mg/dL (70-99)
[2018-01-16 23:30] LABS: CREATININE 0.7 mg/dL (0.6-1.3); GFR ESTIMATE (CALCULATED) > 59 mL/min/
[2018-01-16 23:31] LABS: UREA NITROGEN (BUN) 9 mg/dL (9-23)
[2018-01-17] VITALS (24 sets, daily range): BP systolic 100–170; BP diastolic 59–113
[2018-01-17 05:25] LABS: BASOPHIL (%) 0.5 % (0-1); EOSINOPHIL (%) 0.9 % (0-5); EOSINOPHIL COUNT 0.1 K/uL (0-0.3); HEMATOCRIT 27.9 % (36.0-46.0); HEMOGLOBIN 9.2 G/DL (11.9-15.5); IMMATURE GRANULOCYTE (%) 1.5 % (0.0-0.7); LYMPHOCYTE (%) 17.5 % (15-42); LYMPHOCYTE COUNT 1.4 K/uL (1.0-2.8); MCH 28.3 PG (29.0-34.0); MCV 85.8 FL (83-99); MONOCYTE (%) 10.1 % (3-12); MONOCYTE COUNT 0.8 K/uL (0-0.8); NEUTROPHIL (%) 69.5 % (45-76); NEUTROPHIL COUNT 5.7 K/uL (1.8-6.4); PLATELET COUNT 517 K/uL (156-360); RBC DIS.WIDTH-CV 14.5 % (11.8-14.6); RBC DIS.WIDTH-SD 44.6 % (39-53); RED BLOOD COUNT 3.25 M/uL (3.80-5.20); WHITE BLOOD COUNT 8.2 K/uL (4.1-10.2)
[2018-01-17 06:07] LABS: ALBUMIN 2.4 G/DL (3.2-4.8); ALKALINE PHOSPHATASE 70 IU/L (3-129); ALT (GPT) 46 IU/L (3-49); CHLORIDE 102 MEQ/L (99-109); CREATININE 0.8 MG/DL (0.6-1.3); GFR ESTIMATE (CALCULATED) > 59 mL/min/; GLUCOSE 92 mg/dL (70-99); PHOSPHORUS 3.5 mg/dL (2.5-4.9); POTASSIUM 3.2 MEQ/L (3.7-5.4); SODIUM 137 MEQ/L (136-147); TOTAL BILIRUBIN 0.6 MG/DL (0.0-1.0); TOTAL PROTEIN 5.5 G/DL (6.4-8.3); UREA NITROGEN (BUN) 8 mg/dL (9-23)
[2018-01-17 06:08] LABS: AST (GOT) 42 IU/L (2-34); MAGNESIUM 2.2 mg/dl (1.3-2.7)
[2018-01-17 08:34] LABS: AMYLASE 29 IU/L (1-118); LIPASE 47 U/L (1.0-51.0)
[2018-01-18] VITALS (18 sets, daily range): BP systolic 132–161; BP diastolic 11–113
[2018-01-18 03:04] LABS: BASOPHIL (%) 0.4 % (0-1); BASOPHIL COUNT 0.1 K/uL (0-0.1); EOSINOPHIL (%) 0.5 % (0-5); EOSINOPHIL COUNT 0.1 K/uL (0-0.3); HEMATOCRIT 29.1 % (36.0-46.0); HEMOGLOBIN 9.7 G/DL (11.9-15.5); LYMPHOCYTE (%) 14.9 % (15-42); LYMPHOCYTE COUNT 1.8 K/uL (1.0-2.8); MCHC 33.3 G/DL (30.0-36.0); MCV 86.9 FL (83-99); MONOCYTE (%) 9.5 % (3-12); MONOCYTE COUNT 1.1 K/uL (0-0.8); NEUTROPHIL (%) 73.7 % (45-76); NEUTROPHIL COUNT 8.7 K/uL (1.8-6.4); PLATELET COUNT 504 K/uL (156-360); RBC DIS.WIDTH-CV 14.6 % (11.8-14.6); RBC DIS.WIDTH-SD 46.3 % (39-53); RED BLOOD COUNT 3.35 M/uL (3.80-5.20); WHITE BLOOD COUNT 11.9 K/uL (4.1-10.2)
[2018-01-18 03:21] LABS: CHLORIDE 100 mEq/L (99-109); POTASSIUM 2.9 mEq/L (3.7-5.4); SODIUM 136 mEq/L (136-147)
[2018-01-18 03:22] LABS: ALBUMIN 2.7 g/dL (3.2-4.8); MAGNESIUM 1.4 mg/dL (1.3-2.7)
[2018-01-18 03:24] LABS: GLUCOSE 83 mg/dL (70-99); TOTAL PROTEIN 6.3 g/dL (6.4-8.3)
[2018-01-18 03:26] LABS: TOTAL BILIRUBIN 0.5 mg/dL (0.0-1.0)
[2018-01-18 03:27] LABS: PHOSPHORUS 1.8 mg/dL (2.5-4.9)
[2018-01-18 03:28] LABS: ALKALINE PHOSPHATASE 81 IU/L (3-129); CREATININE 0.8 mg/dL (0.6-1.3); GFR ESTIMATE (CALCULATED) > 59 mL/min/
[2018-01-18 03:29] LABS: AST (GOT) 31 IU/L (2-34); UREA NITROGEN (BUN) 7 mg/dL (9-23)
[2018-01-18 03:31] LABS: ALT (GPT) 39 IU/L (3-49)
[2018-01-19 03:42] VITALS: BP 161/96
[2018-01-19 06:44] LABS: BASOPHIL (%) 0.9 % (0-1); BASOPHIL COUNT 0.1 K/uL (0-0.1); EOSINOPHIL (%) 4.7 % (0-5); EOSINOPHIL COUNT 0.3 K/uL (0-0.3); HEMOGLOBIN 9.6 G/DL (11.9-15.5); IMMATURE GRANULOCYTE (%) 1.2 % (0.0-0.7); LYMPHOCYTE (%) 14.6 % (15-42); MCH 28.7 PG (29.0-34.0); MCV 89.8 FL (83-99); MONOCYTE (%) 10.3 % (3-12); MONOCYTE COUNT 0.7 K/uL (0-0.8); NEUTROPHIL (%) 68.3 % (45-76); NEUTROPHIL COUNT 4.5 K/uL (1.8-6.4); RBC DIS.WIDTH-CV 14.7 % (11.8-14.6); RED BLOOD COUNT 3.34 M/uL (3.80-5.20); WHITE BLOOD COUNT 6.6 K/uL (4.1-10.2)
[2018-01-19 07:12] LABS: ALBUMIN 2.6 G/DL (3.2-4.8); ALKALINE PHOSPHATASE 63 IU/L (3-129); ALT (GPT) 26 IU/L (3-49); AST (GOT) 23 IU/L (2-34); CHLORIDE 105 MEQ/L (99-109); CREATININE 0.8 MG/DL (0.6-1.3); GFR ESTIMATE (CALCULATED) > 59 mL/min/; GLUCOSE 79 mg/dL (70-99); MAGNESIUM 1.7 mg/dl (1.3-2.7); PHOSPHORUS 3.6 mg/dL (2.5-4.9); POTASSIUM 3.3 MEQ/L (3.7-5.4); SODIUM 140 MEQ/L (136-147); TOTAL BILIRUBIN 0.5 MG/DL (0.0-1.0); TOTAL PROTEIN 5.9 G/DL (6.4-8.3); UREA NITROGEN (BUN) 5 mg/dL (9-23)
[2018-01-19 07:55] VITALS: BP 143/90
[2018-01-19 09:18] LABS: PLATELET COUNT 373 K/uL (156-360)
[2018-01-19 12:00] VITALS: BP 160/96
[2018-01-19 17:31] VITALS: BP 154/91
[2018-01-19 23:36] VITALS: BP 157/93
== END 2018-01-20 03:51 | disposition left against medical advice (07) | DRG 163 ==
LOC: EME → EDBD 16:10 → EDOF 21:28 → 4WEST 21:28 → ENRESERV 21:30 → 4WEST 23:21 → ENRESERV 01-18 09:54 → CANRESERV 01-18 09:54 → ENRESERV 01-18 17:09 → 4EAST 01-18 19:33
PROVIDERS: Emergency Medicine; Internal Medicine; Internal Medicine Critical Care Medicine; Internal Medicine Pulmonary Disease; Radiology Diagnostic Radiology; Specialist; Surgery; Thoracic Surgery (Cardiothoracic Vascular Surgery)
PROC: 02HV33Z Insertion of Infusion Device into Superior Vena Cava, Percutaneous Approach (ICD-10-PCS; principal; 2017-12-31)
PROC: B246ZZZ Ultrasonography of Right and Left Heart (ICD-10-PCS; 2017-12-31)
PROC: 5A1955Z Respiratory Ventilation, Greater than 96 Consecutive Hours (ICD-10-PCS; 2017-12-31)
PROC: 0BH17EZ Insertion of Endotracheal Airway into Trachea, Via Natural or Artificial Opening (ICD-10-PCS; 2017-12-31)
PROC: 0W9930Z Drainage of Right Pleural Cavity with Drainage Device, Percutaneous Approach (ICD-10-PCS; 2018-01-03)
PROC: 0BCK4ZZ Extirpation of Matter from Right Lung, Percutaneous Endoscopic Approach (ICD-10-PCS; 2018-01-11)
PROC: 0BBN4ZX Excision of Right Pleura, Percutaneous Endoscopic Approach, Diagnostic (ICD-10-PCS; 2018-01-11)
PROC: 30233N1 Transfusion of Nonautologous Red Blood Cells into Peripheral Vein, Percutaneous Approach (ICD-10-PCS; 2018-01-14)
DX: J80 Acute respiratory distress syndrome (principal); J10.00 Influenza due to other identified influenza virus with unspecified type of pneumonia; J10.1 Influenza due to other identified influenza virus with other respiratory manifestations; R65.21 Severe sepsis with septic shock; J86.9 Pyothorax without fistula; J90 Pleural effusion, not elsewhere classified; E87.6 Hypokalemia; I10 Essential (primary) hypertension; K29.80 Duodenitis without bleeding; E03.9 Hypothyroidism, unspecified; F17.200 Nicotine dependence, unspecified, uncomplicated; G89.29 Other chronic pain; R19.7 Diarrhea, unspecified; G62.9 Polyneuropathy, unspecified; M62.81 Muscle weakness (generalized); F11.20 Opioid dependence, uncomplicated; B19.20 Unspecified viral hepatitis C without hepatic coma; K21.9 Gastro-esophageal reflux disease without esophagitis; M41.9 Scoliosis, unspecified; M51.36 Other intervertebral disc degeneration, lumbar region; Z90.710 Acquired absence of both cervix and uterus; E87.2 Acidosis; N17.9 Acute kidney failure, unspecified; F41.9 Anxiety disorder, unspecified; I27.20 Pulmonary hypertension, unspecified; R00.0 Tachycardia, unspecified; R60.0 Localized edema; R79.89 Other specified abnormal findings of blood chemistry; E87.0 Hyperosmolality and hypernatremia; Z82.5 Family history of asthma and other chronic lower respiratory diseases; Z68.34 Body mass index [BMI] 34.0-34.9, adult
CPT/HCPCS: 31500; 32557; 36600; 70553; 71045; 71250; 72156; 74018; 74177; 76604; 80048; 80048 91; 80053; 80202; 81003; 82150; 82550; 82550 91; 82803; 82945; 82948; 83605; 83615 91; 83630; 83690; 83735; 83880; 84100; 84145 90; 84157; 84478; 84484; 85025; 85027; 85379; 85610; 85730; 86141; 86713 90; 86850; 86900; 86901; 86920; 87040; 87070; 87075; 87086; 87205; 87449; 87493; 87502; 87506; 87641; 88108; 88304; 88305; 89051; 93005; 93306; 94002; 94003; 94010; 94640 76; 94644; 94760; 94799; 97530 GO; 97530 GP; 99202; 99281; 99285; A6214; C1729; C1751; C9113; J0330; J0360; J0456; J0610; J1100; J1170; J1644; J1650; J1956; J2060; J2250; J2405; J2543; J2550; J2704; J3010; J3370; J3475; J3480; J7030; J7040; J7050; J7070; J7120; J7644; P9016; P9045; S0028